=== PATIENT | male | born 1975 | race Caucasian/White ===

== ENCOUNTER 2019-01-01 20:45 | Emergency (ER) | payer OTHER, MEDICAID ==
[2019-01-01] MEDS: SOD CHLORIDE 0.9% 1,000 ML IV (22:06)
[2019-01-01 22:10] LABS: ADD MAN DIFF? NO
[2019-01-01 22:14] LABS: WHITE BLOOD COUNT 6.7 10^3/ul (4.8-10.8)
[2019-01-01 22:14] LABS: BASOPHILS % 0.6 % (0.0-2.0); EOSINOPHILS # 0.3 10^3/ul (0.0-0.5); EOSINOPHILS % 3.9 % (0.0-7.0); HEMATOCRIT 38.7 % (42.0-52.0); HEMOGLOBIN 13.4 g/dl (14.0-18.0); LYMPHOCYTES # 2.7 10^3/ul (0.8-2.9); LYMPHOCYTES % 40.8 % (15.0-51.0); MEAN CORPUSCULAR HGB CONC 34.6 g/dl (32.0-37.0); MEAN CORPUSCULAR VOLUME 86.8 fl (82.0-101.0); MEAN PLATELET VOLUME 10.2 fl (7.4-10.4); MONOCYTE # 0.6 10^3/ul (0.3-0.9); MONOCYTES % 9.2 % (0.0-11.0); NEUTROPHIL # 3.1 10^3/ul (1.6-7.5); NEUTROPHILS % 45.4 % (39.0-77.0); PLATELET COUNT 212 10^3/UL (140-415); RED BLOOD COUNT 4.46 10^6/ul (4.70-6.10); RED CELL DISTRIBUTION WIDTH 12.1 % (11.5-14.5)
[2019-01-01 22:16] LABS: INR 0.97
[2019-01-01 22:21] LABS: ANION GAP 6 (5-13); BLOOD UREA NITROGEN 21 mg/dl (7-20); CALCIUM 8.9 mg/dl (8.4-10.2); CARBON DIOXIDE 28 mmol/L (21-31); CHLORIDE 107 mmol/L (97-110); CREATININE 1.16 mg/dl (0.61-1.24); Estimated GFR > 60 mL/min (>60); GLUCOSE 117 mg/dl (70-220); POTASSIUM 4.4 mmol/L (3.5-5.1); SODIUM 141 mmol/L (135-144)
[2019-01-01 22:33] LABS: TROPONIN-I < 0.012 ng/ml (0.000-0.120)
[2019-01-02] MEDS: DIPHENHYDRAMINE 50 MG INJ IV (00:25)
[2019-01-02] MEDS: KETOROLAC 15 MG INJ IV (00:25)
[2019-01-02] MEDS: METOCLOPRAMIDE 10 MG INJ IV (00:26)
== END 2019-01-02 01:55 | disposition home or self-care (01) ==
LOC: E/R 01-02 01:55
DX: E86.0 Dehydration (principal); R20.2 Paresthesia of skin; R55 Syncope and collapse
CPT/HCPCS: 36415; 71045; 80048; 84484; 85025; 85610; 93005; 96374; 96375; 99285-25